=== PATIENT | female | born 1995 | race Hispanic/Latino ===

== ENCOUNTER 2016-05-10 05:33 | Emergency (ER) | payer MEDICAID ==
[2016-05-10 06:13] VITALS: BP 151/107
[2016-05-10] MEDS ORDERED: NACL 0.9% 1000 ML 1,000 ML IV ONE (06:17)
[2016-05-10 06:39] LABS: Basophils % (Auto) 0.2 % (0.0-1.8); Eosinophils % (Auto) 1.1 % (0.0-4.3); Hematocrit 39.8 % (30.3-42.9); Hemoglobin 13.1 gm/dl (10.1-14.3); Mean Corpuscular HGB Conc 33 % (30-34); Mean Corpuscular Hemoglobin 28 pg (28-32); Mean Corpuscular Volume 86 fl (79-97); Platelet Count 195 K/mm3 (140-440); Red Blood Count 4.62 M/mm3 (3.65-5.03); Red Cell Distribution Width 14.2 % (13.2-15.2); White Blood Count 11.9 K/mm3 (4.5-11.0)
[2016-05-10 06:45] LABS: INR 0.97 (0.87-1.13)
[2016-05-10 06:46] LABS: Partial Thromboplastin Time 27.3 Sec. (24.2-36.6)
[2016-05-10 06:55] LABS: Alanine Aminotransferase 18 units/L (7-56); Albumin/Globulin Ratio 1.3 %; Alkaline Phosphatase 91 units/L (35-129); Anion Gap 20 mmol/L; BUN/Creatinine Ratio 14.28; Bilirubin,Total 0.4 mg/dL (0.1-1.2); Blood Urea Nitrogen 10 mg/dL (7-17); Calcium 9.2 mg/dL (8.4-10.2); Carbon Dioxide 23 mmol/L (22-30); Chloride 102.3 mmol/L (98-107); Glucose 101 mg/dL (65-100); Lipase 17 units/L (13-60); Potassium 4.2 mmol/L (3.6-5.0); Sodium 141 mmol/L (137-145); Total Protein 7.2 g/dL (6.3-8.2)
--- NOTE | 2016-05-13 04:36 | ED Elopement Review ---
ED Pt Elopement review - Results review Lab results: Laboratory Tests 05/10/16 05/10/16 05/10/16 06:23 06:23 06:23 WBC 11.9 H RBC 4.62 Hgb 13.1 Hct 39.8 MCV 86 MCH 28 MCHC 33 RDW 14.2 Plt Count 195 Lymph % (Auto) 27.8 [place] % (Auto) 8.7 H Eos % (Auto) 1.1 Baso % (Auto) 0.2 Lymph # 3.3 [place] # 1.0 H Eos # 0.1 Baso # 0.0 Seg Neutrophils % 62.2 Seg Neutrophils # 7.4 PT 12.8 INR 0.97 APTT 27.3 Sodium 141 Potassium 4.2 Chloride 102.3 Carbon Dioxide 23 Anion Gap 20 BUN 10 Creatinine 0.7 Estimated GFR > 60 BUN/Creatinine Ratio 14.28 Glucose 101 H Calcium 9.2 Total Bilirubin 0.4 AST 16 ALT 18 Alkaline Phosphatase 91 Total Protein 7.2 Albumin 4.0 Albumin/Globulin Ratio 1.3 Lipase 17 Blood Type Antibody Screen 05/10/16 06:23 WBC RBC Hgb Hct MCV MCH MCHC RDW Plt Count Lymph % (Auto) [place] % (Auto) Eos % (Auto) Baso % (Auto) Lymph # [place] # Eos # Baso # Seg Neutrophils % Seg Neutrophils # PT INR APTT Sodium Potassium Chloride Carbon Dioxide Anion Gap BUN Creatinine Estimated GFR BUN/Creatinine Ratio Glucose Calcium Total Bilirubin AST ALT Alkaline Phosphatase Total Protein Albumin Albumin/Globulin Ratio Lipase Blood Type O POSITIVE Antibody Screen Negative - Call Back decision Pt Call Back Decision: No action required
== END 2016-05-10 19:00 | disposition left against medical advice (07) ==
LOC: ED 05:33
DX: K21.9 Gastro-esophageal reflux disease without esophagitis (principal); Z91.02 Food additives allergy status; Z53.21 Procedure and treatment not carried out due to patient leaving prior to being seen by health care provider
CPT/HCPCS: 36415; 80053; 83690; 85025; 85610; 85730; 86850; 86900; 86901